=== PATIENT | female | born 1995 | race Caucasian/White ===

== ENCOUNTER 2019-02-12 07:54 | Emergency (ER) | payer SELFPAY ==
[2019-02-12 08:06] VITALS: BP 122/63
[2019-02-12] MEDS ORDERED: KETOROLAC 60 MG/2 ML VIAL. IM ONE ×2 (08:25→08:30)
--- NOTE | 2019-02-12 08:42 | RAD ---
Exam performed: One view chest. Indication: Right-sided chest pain Date of Service: 02/12/2019 8:22 AM Comparison: None available. Single AP upright portable view chest findings: Cardiomediastinal silhouette is within limits of normal. No acute infiltrates, effusion or pneumothorax is detected. The bony structures are normal. Impression: No acute cardiopulmonary process is detected. Electronically signed by: Pattie Hou MD (02/12/2019 8:39 AM) [facility]
[2019-02-12] MEDS ORDERED: IBUPROFEN 600 MG TABLET. PO ONE (08:45)
[2019-02-12] MEDS ORDERED: NAPR500T8 PO (08:46)
--- NOTE | 2019-02-12 08:47 | PHYS DOC ---
Past History Past Medical History: No Pertinent History Past Surgical History: No Surgical History Alcohol Use: None Drug Use: None Adult General Chief Complaint Chief Complaint: RIB PAIN HPI HPI 23-year-old healthy female presents with right chest wall pain. She states the pain is sharp in nature and worse with any movement. She denies any recent trauma. She's had no cough or congestion. She denies hemoptysis. She's had no fever chills or sweats. She has not noticed any bruising or rash to the area.[] Review of Systems Review of Systems Constitutional: Denies fever or chills [] Eyes: Denies change in visual acuity, redness, or eye pain [] HENT: Denies nasal congestion or sore throat [] Respiratory: Per history of present illness[] Cardiovascular: No additional information not addressed in HPI [] GI: Denies abdominal pain, nausea, vomiting, bloody stools or diarrhea [] : Denies dysuria or hematuria [] Musculoskeletal: Denies back pain or joint pain [] Integument: Denies rash or skin lesions [] Neurologic: Denies headache, focal weakness or sensory changes [] Endocrine: Denies polyuria or polydipsia [] All other systems were reviewed and found to be within normal limits, except as documented in this note. Current Medications Current Medications Current Medications Medications (Trade) Dose Ordered Sig/Leslye Start Time Stop Time Status Last Admin Dose Admin Ibuprofen (Motrin) 600 mg 1X ONCE 02/12/19 08:45 02/12/19 08:46 UNV Ketorolac Tromethamine (Toradol Im) 60 mg STK-MED ONCE 02/12/19 08:25 02/12/19 08:36 DC Allergies Allergies Allergies Coded Allergies Type Severity Reaction Last Updated Verified No Known Drug Allergies 02/12/19 No Physical Exam Physical Exam Constitutional: Well developed, well nourished, no acute distress, non-toxic jayden earance. [] HENT: Normocephalic, atraumatic, bilateral external ears normal, oropharynx moist, no oral exudates, nose normal. [] Eyes: PERRLA, EOMI, conjunctiva normal, no discharge. [] Neck: Normal range of motion, no tenderness, supple, no stridor. [] Cardiovascular:Heart rate regular rhythm, no murmur [] Lungs & Thorax: Bilateral breath sounds clear to auscultation, right chest wall is tender to palp reproducing symptoms [] Abdomen: Bowel sounds normal, soft, no tenderness, no masses, no pulsatile shadi s. [] Skin: Warm, dry, no erythema, no rash. [] Back: No tenderness, no CVA tenderness. [] Extremities: No tenderness, no cyanosis, no clubbing, ROM intact, no edema. [] Neurologic: Alert and oriented X 3, normal motor function, normal sensory function, no focal deficits noted. [] Psychologic: Anxious[] Current Patient Data Vital Signs Vital Signs Date Time Temp Pulse Resp B/P (MAP) Pulse Ox O2 Delivery O2 Flow Rate FiO2 02/12/19 08:06 98.7 114 22 97 Room Air EKG EKG [] Radiology/Procedures Radiology/Procedures [] Impressions: Exam performed: One view chest. Indication: Right-sided chest pain Date of Service: 02/12/2019 8:22 AM Comparison: None available. Single AP upright portable view chest findings: Cardiomediastinal silhouette is within limits of normal. No acute infiltrates, effusion or pneumothorax is detected. The bony structures are normal. Impression: No acute cardiopulmonary process is detected. Course & Med Decision Making Course & Med Decision Making Pertinent Labs and Imaging studies reviewed. (See chart for details) [ED course: Patient refused Toradol injection. Was given 600 mg of Motrin. Reassured the patient that the x-rays normal.] Dragon Disclaimer Dragon Disclaimer This electronic medical record was generated, in whole or in part, using a voice recognition dictation system. Departure Departure: Impression: Primary Impression: Acute chest wall pain Disposition: 01 HOME, SELF-CARE Condition: STABLE Referrals: PCP,NO (PCP) Patient Instructions: Costochondritis Scripts Naproxen (NAPROXEN) 500 Mg Tablet. 1 TAB PO Q12HR PRN for PAIN, #60 TAB 1 Refill Prov: GILES MACIEL DO 02/12/19 GILES MACIEL DO Feb 12, 2019 08:47
== END 2019-02-12 08:48 | disposition home or self-care (01) ==
LOC: ER 07:54
DX: R07.89 Other chest pain (principal)
CPT/HCPCS: 71045; 99283

== ENCOUNTER 2021-07-12 11:41 | Emergency (ER) | payer SELFPAY ==
[~2021-07-12] VITALS: Ht 162.6 cm; Wt 62.0 kg
[~2021-07-12 11:41] MED LIST: NAPR500T8 PO
[2021-07-12 12:00] VITALS: BP 133/63
[2021-07-12] MEDS ORDERED: ONDANSETRON PF 4 MG/2 ML VIAL. IVP ONE (12:15)
[2021-07-12] MEDS ORDERED: IV NORMAL SALINE 1,000ML 1,000 ML IV ONE (12:15)
[2021-07-12] MEDS ORDERED: FAMOTIDINE 20 MG/2 ML VIAL IVP ONE (12:15)
--- NOTE | 2021-07-12 12:26 | PHYS DOC ---
Past History Past Medical History: No Pertinent History Additional Past Medical Histor: hyperemesis grav Past Surgical History: No Surgical History Alcohol Use: None Drug Use: None General Adult EDM: Chief Complaint: NAUSEA/VOMITING/DIARRHEA HPI: HPI: Patient is a 26-year-old female who presents to the emergency department today for nausea, vomiting and umbilical abdominal pain that started 2 days ago. Abdominal pain does not radiate. No treatment prior to arrival. Patient reports a normal bowel movement yesterday. She started her menstrual cycle as scheduled 3 days ago. Patient does report marijuana use but reports that she never typically has nausea and vomiting after marijuana use. She last smoked marijuana yesterday. Patient denies blood in stools or vomit, urinary symptoms, fever, sick exposures, recent travel. Review of Systems: Review of Systems: Constitutional: See HPI GI: See HPI : See HPI Current Medications: Current Meds: Current Medications Medications (Trade) Dose Ordered Sig/Leslye Start Time Stop Time Status Last Admin Dose Admin Famotidine (Pepcid Vial) 20 mg 1X ONCE 07/12/21 12:15 07/12/21 12:16 DC Ondansetron HCl (Zofran) 4 mg 1X ONCE 07/12/21 12:15 07/12/21 12:16 DC Sodium Chloride 1,000 ml @ 1,000 mls/hr 1X ONCE 07/12/21 12:15 07/12/21 13:14 Allergies: Allergies: Allergies Coded Allergies Type Severity Reaction Last Updated Verified No Known Drug Allergies 02/12/19 No Physical Exam: PE: Constitutional: Well developed, well nourished, no acute distress, non-toxic appearance. [] HENT: Normocephalic, atraumatic, bilateral external ears normal, oropharynx dry t, no oral exudates, nose normal. [] Eyes: PERRL, EOMI, conjunctiva normal, no discharge. [] Neck: Normal range of motion, no stridor Cardiovascular:Heart rate regular rhythm, no murmur [] Lungs & Thorax: Bilateral breath sounds clear to auscultation [] Abdomen: Bowel sounds normal, soft, no abdominal guarding or rigidity, tenderness in right upper and lower quadrants with palpation, no rebound tenderness, no masses, no pulsatile masses. [] Skin: Warm, dry, no erythema, no rash. [] Back: No tenderness, no CVA tenderness. [] Extremities: No tenderness, no cyanosis, no clubbing, ROM intact, no edema. [] Neurologic: Alert and oriented X 3, normal motor function, normal sensory function, no focal deficits noted. [] Psychologic: Affect normal, judgement normal, mood normal. [] Current Patient Data: Labs: Laboratory Tests Test 07/12/21 12:05 White Blood Count 13.9 x10^3/uL Red Blood Count 4.68 x10^6/uL Hemoglobin 12.1 g/dL Hematocrit 37.2 % Mean Corpuscular Volume 80 fL Mean Corpuscular Hemoglobin 26 pg Mean Corpuscular Hemoglobin Concent 33 g/dL Red Cell Distribution Width 18.2 % Platelet Count 352 x10^3/uL Neutrophils (%) (Auto) 93 % Lymphocytes (%) (Auto) 4 % Monocytes (%) (Auto) 2 % Eosinophils (%) (Auto) 0 % Basophils (%) (Auto) 0 % Neutrophils # (Auto) 12.9 x10^3uL Lymphocytes # (Auto) 0.6 x10^3/uL Monocytes # (Auto) 0.3 x10^3/uL Eosinophils # (Auto) 0.0 x10^3/uL Basophils # (Auto) 0.0 x10^3/uL Sodium Level 141 mmol/L Potassium Level 3.2 mmol/L Chloride Level 102 mmol/L Carbon Dioxide Level 26 mmol/L Anion Gap 13 Blood Urea Nitrogen 22 mg/dL Creatinine 1.0 mg/dL Estimated GFR (Cockcroft-Gault) 67.6 BUN/Creatinine Ratio 22 Glucose Level 134 mg/dL Calcium Level 9.6 mg/dL Total Bilirubin 0.7 mg/dL Aspartate Amino Transf (AST/SGOT) 24 U/L Alanine Aminotransferase (ALT/SGPT) 24 U/L Alkaline Phosphatase 71 U/L Total Protein 8.4 g/dL Albumin 4.2 g/dL Albumin/Globulin Ratio 1.0 Lipase 32 U/L Current Medications Medications (Trade) Dose Ordered Sig/Leslye Route PRN Reason Start Time Stop Time Status Last Admin Dose Admin Sodium Chloride 1,000 ml @ 1,000 mls/hr 1X ONCE IV 07/12/21 12:15 07/12/21 13:14 DC 07/12/21 12:29 Ondansetron HCl (Zofran) 4 mg 1X ONCE IVP 07/12/21 12:15 07/12/21 12:16 DC 07/12/21 12:31 Famotidine (Pepcid Vial) 20 mg 1X ONCE IVP 07/12/21 12:15 07/12/21 12:16 DC 07/12/21 12:33 Iohexol (Omnipaque 300 Mg/ml) 75 ml 1X ONCE IV 07/12/21 13:00 07/12/21 13:06 DC 07/12/21 14:27 Vital Signs: Vital Signs Date Time Temp Pulse Resp B/P (MAP) Pulse Ox O2 Delivery O2 Flow Rate FiO2 07/12/21 12:00 98.1 73 20 133/63 (86) 100 EKG: EKG: [] Radiology/Procedures: Radiology/Procedures: []One or more of the following individualized dose reduction techniques were utilized for this examination: 1. Automated exposure control 2. Adjustment of the mA and/or kV according to patient size 3. Use of iterative reconstruction technique Exam performed: CT abdomen and pelvis with contrast HISTORY: Right upper and lower quadrant pain. DATE OF SERVICE: 07/12/2021. COMPARISON: None available TECHNIQUE: Contiguous helical acquisitions are obtained through the abdomen and pelvis during intravenous demonstration of contrast. Sagittal and coronal reformatted images are obtained and reviewed. FINDINGS: Visualized portion of the appendix appears normal and is unremarkable as annotated on the images. There is diffuse wall thickening of the right colon with mild inflammatory changes in the right paracolic gutter, best seen on axial image 40 through 44, series 2 and coronal image 27/61. The lung bases are clear. The visualized heart is normal. The liver, is clean, pancreas and gallbladder appear normal. Both adrenal glands and bilateral kidneys are normal in size with symmetric excretion of contrast via both kidneys. There are small bilateral renal cysts. Aorta is normal in caliber without aneurysm. No retroperitoneal or mesenteric lymphadenopathy seen. The urinary bladder appears normal however decompressed. The uterus is anteverted. There is a 3.7 cm cyst in the right. Interrogation of bone windows demonstrates no bony abnormality. IMPRESSION: 3.7 cm right ovarian cyst, likely physiological. Diffuse wall thickening of the ascending colon with mild inflammatory changes. Mild colitis is suspected. Visualized appendix is normal. Electronically signed by: Pattie Hou MD (07/12/2021 2:51 PM) [facility] DICTATED AND SIGNED BY: PATTIE HOU MD DATE: 07/12/21 1444 CC: EMERGENCY,DEPARTMENT; GÓMEZ GARCIA APRN; CORINE DAVIS MD ~ Heart Score: C/O Chest Pain: N/A Risk Factors: Risk Factors: DM, Current or recent (<one month) smoker, HTN, HLP, family history of CAD, obesity. Risk Scores: Score 0 - 3: 2.5% MACE over next 6 weeks - Discharge Home Score 4 - 6: 20.3% MACE over next 6 weeks - Admit for Clinical Observation Score 7 - 10: 72.7% MACE over next 6 weeks - Early Invasive Strategies Course & Med Decision Making: Course & Med Decision Making Pertinent Labs and Imaging studies reviewed. (See chart for details) [] Patient presents to the emergency department for nausea, vomiting and umbilical abdominal pain. Work-up in the ER consisted of blood work including lipase, urinalysis and CT imaging of abdomen and pelvis. Patient be treated with IV fluids she does have dry oral mucosa and nausea medication and Pepcid. Patient does report marijuana use yesterday. Patient was noted to have a white blood cell count of 13.9, unsure if this is due to her nausea and vomiting. She had a negative lipase. Potassium was 3.2 and this was replaced in the emergency department. CT imaging of abdomen and pelvis shows symptoms consistent with colitis as well as an ovarian cyst likely physiological. As patient has only had symptoms for 2 days and is not reporting diarrhea, empiric abx not ordered. consulted supervisng physician. Patient is able to tolerate oral intake in the emergency department. She will be discharged home with nausea medication. She is advised to take Tylenol and ibuprofen at home for pain and follow-up with her primary care provider. Her vital signs are stable. She reports that her symptoms have improved. I discussed with patient all findings and diagnostic testing as well as the need to follow-up with PCP for further evaluation and treatment or return to the ER if any new or worsening symptoms. Strict return precautions were also discussed at length. Patient voiced understanding and agreement with the plan. Patient is hemodynamically stable at the time of disposition. Dragon Disclaimer: Dragon Disclaimer: This electronic medical record was generated, in whole or in part, using a voice recognition dictation system. Departure Departure: Impression: Primary Impression: Nausea & vomiting Qualified Codes: R11.2 - Nausea with vomiting, unspecified Disposition: HOME / SELF CARE / HOMELESS Condition: GOOD Referrals: CORINE DAVIS MD (PCP) Patient Instructions: Nausea and Vomiting Additional Instructions: You are seen in the emergency department today for nausea vomiting and abdominal pain. You are being discharged home with nausea medication that you can take as needed. Please increase your fluids. Your potassium was replaced in the emergency department today for supplementation. Please make sure that you are taking potassium rich foods at home like green leafy vegetables and bananas. You were noted to have inflammation of your colon which could be due to a virus or a bacteria. You were also noted to have an ovarian cyst, likely not the cause of your symptoms but something you can be aware of. If your symptoms do not improve or get worse over the next 1 to 2 days, please see your primary care provider or return to the emergency department so we can place you on an antibiotic. Return to the emergency department if you develop worsening of your abdominal pain, blood in your stools or vomit, intractable nausea or vomiting, severe diarrhea, high fevers refractory to treatment. Scripts Ondansetron (ONDANSETRON ODT) 4 Mg Tab.rapdis 1 TAB PO PRN Q6-8HRS for nausea for 7 Days, #28 TAB 0 Refills Prov: GÓMEZ GARCIA APRN 07/12/21 GÓMEZ GARCIA APRN Jul 12, 2021 12:26
[2021-07-12 12:29] LABS: BASO % 0 % (0-3); EOS % 0 % (0-3); HEMATOCRIT 37.2 % (36.0-47.0); HEMOGLOBIN 12.1 g/dL (12.0-15.5); LYMPH # 0.6 x10^3/uL (1.0-4.8); LYMPH % 4 % (24-48); MEAN CORPUSCULAR HEMOGLOBIN 26 pg (25-35); MEAN CORPUSCULAR HGB CONC 33 g/dL (31-37); MEAN CORPUSCULAR VOLUME 80 fL (79-100); MONO # 0.3 x10^3/uL (0.0-1.1); MONO % 2 % (0-9); NEUT # 12.9 x10^3uL (1.8-7.7); NEUT % 93 % (31-73); PLATELET COUNT 352 x10^3/uL (140-400); RED BLOOD COUNT 4.68 x10^6/uL (3.50-5.40); RED CELL DISTRIBUTION WIDTH 18.2 % (11.5-14.5); WHITE BLOOD COUNT 13.9 x10^3/uL (4.0-11.0)
[2021-07-12 12:38] LABS: CALCIUM 9.6 mg/dL (8.5-10.1); GFR 67.6; POTASSIUM 3.2 mmol/L (3.5-5.1)
[2021-07-12 12:43] LABS: ALBUMIN 4.2 g/dL (3.4-5.0); TOTAL BILIRUBIN 0.7 mg/dL (0.2-1.0); TOTAL PROTEIN 8.4 g/dL (6.4-8.2)
[2021-07-12] MEDS ORDERED: IOHEXOL 300 MG/ML 75 ML VIAL. IV ONE (13:00)
--- NOTE | 2021-07-12 14:53 | RAD ---
PQRS Compliance Statement: One or more of the following individualized dose reduction techniques were utilized for this examinat ion: 1. Automated exposure control 2. Adjustment of the mA and/or kV according to patient size 3. Use of iterative reconstruction technique Exam performed: CT abdomen and pelvis with contrast HISTORY: Right upper and lower quadrant pain. DATE OF SERVICE: 07/12/2021. COMPARISON: None available TECHNIQUE: Contiguous helical acquisitions are obtained through the abdomen and pelvis during intrave nous demonstration of contrast. Sagittal and coronal reformatted images are obtained and reviewed. FINDINGS: Visualized portion of the appendix appears normal and is unremarkable as annotated on the images. The re is diffuse wall thickening of the right colon with mild inflammatory changes in the right paracoli c gutter, best seen on axial image 40 through 44, series 2 and coronal image 27/61. The lung bases are clear. The visualized heart is normal. The liver, is clean, pancreas and gallbladd er appear normal. Both adrenal glands and bilateral kidneys are normal in size with symmetric excreti on of contrast via both kidneys. There are small bilateral renal cysts. Aorta is normal in caliber wi thout aneurysm. No retroperitoneal or mesenteric lymphadenopathy seen. The urinary bladder appears normal however decompressed. The uterus is anteverted. There is a 3.7 cm cyst in the right. Interrogation of bone windows demonstrates no bony abnormality. IMPRESSION: 3.7 cm right ovarian cyst, likely physiological. Diffuse wall thickening of the ascending colon with mild inflammatory changes. Mild colitis is suspec sydnee. Visualized appendix is normal. Electronically signed by: Pattie Hou MD (07/12/2021 2:51 PM) [facility]
[2021-07-12] MEDS ORDERED: POTASSIUM CHLORIDE 10 MEQ TABLET.ER. PO ONE (15:45)
[2021-07-12] MEDS ORDERED: ONDA4TAB12 PO (16:02)
== END 2021-07-12 16:20 | disposition home or self-care (01) ==
LOC: ER 11:41
DX: R11.2 Nausea with vomiting, unspecified (principal); R10.33 Periumbilical pain
CPT/HCPCS: 36415; 74177; 80053; 83690; 85025; 96361; 96374; 96375; 99285; J2405; J3490; J7030; Q9967